=== PATIENT | female | born 1970 | race Two or more races ===

== ENCOUNTER 2023-03-14 12:03 | Emergency (ER) | payer MEDICAID ==
[~2023-03-14] VITALS: Ht 157.5 cm; Wt 66.2 kg
[2023-03-14] MEDS ORDERED: ACETAMINOPHEN ES 500 MG TABLET ONE (12:49)
[2023-03-14] MEDS ORDERED: CYCLOBENZAPRINE 10 MG TABLET ONE (12:49)
[2023-03-14] MEDS ORDERED: IBUPROFEN 600 MG TABLET ONE (12:49)
[2023-03-14] MEDS ORDERED: CYCLOBENZAPRINE 10 MG TABLET PO ONE (13:00)
[2023-03-14] MEDS ORDERED: IBUPROFEN 600 MG TABLET PO ONE (13:00)
[2023-03-14] MEDS ORDERED: ACETAMINOPHEN ES 500 MG TABLET PO ONE (13:00)
[2023-03-14] MEDS ORDERED: CYCL10TA9 PO (13:01)
[2023-03-14 13:13] VITALS: BP 138/78; TEMP 98; O2SAT 97
== END 2023-03-14 13:14 | disposition home or self-care (01) ==
LOC: ER 12:08
DX: M54.50 Low back pain, unspecified (principal); M54.6 Pain in thoracic spine; R51.9 Headache, unspecified; J45.909 Unspecified asthma, uncomplicated; V89.2XXA Person injured in unspecified motor-vehicle accident, traffic, initial encounter; Y93.89 Activity, other specified; Y92.89 Other specified places as the place of occurrence of the external cause; Y99.8 Other external cause status